=== PATIENT | female | born 1965 | race Caucasian/White ===

== ENCOUNTER 2022-10-04 07:37 | Observation (INO) | payer BC, SELFPAY ==
[2022-10-04] VITALS (10 sets, daily range): BP systolic 90–128; BP diastolic 47–76; PULSE 53–69; RESP 16–20; TEMP 36.1–36.7; O2SAT 92–97; BMI 32.0
--- NOTE | 2022-10-04 | ECG_ITS ---
Test Reason : Dizziness Blood Pressure : / mmHG Vent. Rate : 063 BPM Atrial Rate : 063 BPM P-R Int : 172 ms QRS Dur : 090 ms QT Int : 432 ms P-R-T Axes : 043 025 023 degrees QTc Int : 442 ms Normal sinus rhythm Normal ECG No previous ECGs available Referred By: Generic ED Physician Electronically Signed By:Raffy Aocsta
--- NOTE | ~2022-10-04 | CT_ITS ---
EXAMINATION: CT HEAD WITHOUT CONTRAST CLINICAL INFORMATION: Persistent dizziness, syncope COMPARISON: None TECHNIQUE: Contiguous axial imaging was performed from the skull base to vertex without intravenous administration of contrast. Additional 2-D coronal and sagittal reformatted images are generated on the CT workstation and uploaded to PACS. This CT examination was performed using dose optimization techniques as appropriate, variously including the following: *Automated exposure control *Adjustment of mA and/or kV according to patient size (this includes techniques or standardized protocols for targeted exams where dose is matched to indication/reason for exam; i.e. extremities or head) *Use of iterative reconstruction technique DLP: 680 mGy-cm FINDINGS: There is no intracranial hemorrhage, hematoma, or extra-axial fluid collection. The ventricles are normal in size. There is no hydrocephalus, edema, or mass effect. The davis-white matter differentiation appears well preserved . There is no visible acute territorial infarct or mass lesion. The calvarium appears intact. There is no pneumocephalus or orbital emphysema. The visualized sinuses and middle ears and mastoid air cells show no significant mucosal thickening. There are no air-fluid levels. CT/CT head/brain wo IV con IMPRESSION: No acute intracranial abnormality.
--- NOTE | 2022-10-04 08:39 | ED_ITS ---
HPI - Syncope General Chief Complaint: Syncope Stated Complaint: Sinkable episode per EMS Time Seen by Provider: 10/04/22 08:07 Source: patient Mode of arrival: EMS Limitations: no limitations History of Present Illness HPI narrative: Patient is a 57-year-old female who presents to the emergency department via EMS from work today after a syncopal episode. Patient states that she stayed the night at work last night, due to impending inclement weather. She does endorse that she did not sleep well, and had not yet eaten this morning. Upon awaiting to clock into work she was standing next to a co-worker when she began to feel dizzy. It is described as an unsteady feeling on her feet. Her co-worker got her a chair to sit down in. Patient syncopized for approximately 1-2 minutes. Upon awakening she reports that she continued to feel dizzy, nauseous, and had a small episode of vomiting. She reports a history of a similar event occurring approximately 6 years ago, was evaluated at [facility], reports that workup was unremarkable, and at that time it was thought to be related to a viral infection. She reports compliance with her medications, although she does endorse a recent decrease in her lithium dosage approximately 1 month ago due to hypercalcemia, for which she is now being evaluated by an administrative tech due to hyperparathyroidism. Related Data Home Medications Medication Instructions Recorded Confirmed atorvastatin 10 mg tablet 1 tab PO DAILY 10/04/22 10/04/22 cholecalciferol (vitamin D3) 50 50 mcg PO DAILY 10/04/22 10/04/22 mcg (2,000 unit) tablet lamotrigine 100 mg tablet 2 tab PO QAM 10/04/22 10/04/22 levothyroxine 125 mcg tablet 1 tab PO DAILY@0600 10/04/22 10/04/22 lithium carbonate 450 mg 1 tab PO DAILY 10/04/22 10/04/22 tablet,extended release multivitamin 1 tab PO DAILY 10/04/22 10/04/22 trazodone 50 mg tablet 1 - 2 tab PO BEDTIME 10/04/22 10/04/22 zinc sulfate 50 mg zinc (220 mg) 50 mg PO DAILY 10/04/22 10/04/22 tablet Allergies Allergy/AdvReac Type Severity Reaction Status Date / Time No Known Allergies Allergy Verified 10/04/22 08:25 Review of Systems Review of Systems: Constitutional : No Fever, No Chills, No Fatigue ENT/Mouth : No sore throat, No Rhinorrhea Eyes: No Eye Pain, No Swelling, No Redness Cardiovascular : No Chest Pain, No SOB, No Dyspnea on Exertion Respiratory : No Cough, No Sputum Gastrointestinal : Positive Nausea, positive Vomiting, No Diarrhea, No abdominal Pain Genitourinary : No Dysuria, No Urinary Frequency, No Hematuria, Musculoskeletal : No joint pain, No Myalgias, No Joint Swelling Skin : No Skin Lesions, No rash Neuro : Positive dizziness. No Weakness, No Numbness, No Headache Psych : No Anxiety/Panic, No Depression Heme/Lymph: No Bruising, No Bleeding, No Lymphadenopathy Endocrine : No Polyuria, No Polydipsia Yes all other systems are reviewed and are negative [facility] Past Medical History Attestation statement: The following information was validated with the patient. Source: old records reviewed Medical History (Updated 10/04/22 @ 18:05 by Precious Orellana RN) Breast cancer Patent ductus arteriosus Social History Social History Smoked in Last 30 Days: No Use of substances other than those prescribed or required for medical reasons: No Any prior treatment program specific to substance use: No Advance Directives: No Advance Directives Information Provided: Yes Patient : No Physical Exam Vital Signs: Vital Signs: Last Vital Signs Temp 98.0 F 10/04/22 16:00 Pulse 68 10/04/22 16:00 Resp 16 10/04/22 16:00 BP 119/66 10/04/22 16:00 Pulse Ox 96 10/04/22 16:00 O2 Del Method 10/04/22 16:00 BMI result Body Mass Index 32.0 Appearance: Alert.?Oriented to person, place and time. No acute distress.?Normal affect. Head: Normocephalic, atraumatic. No head, sinus or TMJ tenderness.? Eyes: Sclera white, conjunctiva pink. PERRL, 3 mm bilaterally. Visual frias full to confrontation, EOMi.?No Nystagmus. Ears: Bilateral ear canals clear, TM visible with good cone of light.? Nose: Nasal mucosa pink and moist with midline septum, nares patent bilaterally.? Mouth/ Throat: Oral mucosa pink and moist without lesions. Pharynx normal Neck: Normal inspection.? Neck supple.?? CVS: Heart sounds normal. Normal heart rate and rhythm.? Pulses normal.?? Respiratory: No respiratory distress.? Lung sounds clear to auscultation bilaterally?? Abdomen: Soft and non-tender. Normoactive bowel sounds. Skin: Skin warm and dry.? Normal skin color.? Extremities: No lower extremity edema. Neuro: No focal neurological deficit observed, CN II-XII intact, normal sensory observed, normal coordination observed. Level of consciousness: Appropriate for age. Motor strength: right upper extremity 5 /5, left upper extremity 5 /5, right lower extremity 5 /5, left lower extremity 5 /5.?Speech: Normal, Gait: N ormal, Atspap-ac-xaaf test: Normal, Vdsg-wk-lrhg test: Normal. Ambulates with normal steady gait. Course Reevaluation(s) Reevaluation #1: Orthostatic vital signs are negative. CBC overall unremarkable no leukocytosis, anemia. CMP is overall unremarkable, mildly elevated BUN, suspect a mild dehyd ration, random glucose is 142, etiology likely not secondary to hypoglycemia. Troponin <3.5, EKG revealing normal sinus rhythm with ventricular rate of 63, normal MT interval, QTC 442, no ST elevation, ST depression, or T-wave inversion, do not suspect ACS as an etiology for symptoms at this time. COVID- 19 and influenza testing are negative. Time: 11:42 Reevaluation #2: CT of the head without acute intracranial pathology. At this time, cause for syncopal episode is unknown, likely require cardiology consult, continued monitoring on telemetry for arrhythmia. Spoke with hospitalist service Dr. Valentin, who accepts patient for admission to medicine. Patient updated on plan of care and is agreeable. Time: 14:00 Medications Administered Generic Name Dose Route Start Last Admin Trade Name Freq PRN Reason Stop Dose Admin Acetaminophen 650 mg 10/04/22 15:00 10/04/22 15:17 Acetaminophen 325 Mg Tablet PO 650 mg Q6H PRN Administration Pain, Mild (Pain Scale 1-3) Enoxaparin Sodium 40 mg 10/04/22 15:00 10/04/22 15:15 Enoxaparin Sodium 40 Mg/0.4 Ml Syringe SUBCUT 40 mg Q24H YOSSI Administration Sodium Chloride 3 ml 10/04/22 16:00 10/04/22 15:15 0.9 % Sodium Chloride Flush 3 Ml Syringe IVFLUSH 3 ml QSHIFT YOSSI Administration Discontinued Medications Generic Name Dose Route Start Last Admin Trade Name Laurence PRN Reason Stop Dose Admin Sodium Chloride 1,000 mls @ 999 mls/hr 10/04/22 09:00 10/04/22 10:03 Ns IV 10/04/22 10:00 Infused .Q1H1M YOSSI Infusion Medical Decision Making Medical Decision Making [facility] Narrative: Patient is a 57-year-old female with past medical history of hyperlipidemia, hypothyroidism, hyperparathyroidism, bipolar 2 disorder-depression, breast cancer s/p radical double mastectomy in 2014, who presents to the emergency department for evaluation after a syncopal episode with persistent dizziness. At the time of my examination she is overall well-appearing. She is mildly hypotensive 90/50, without tachycardia, tachypnea, hypoxia, or fever. Neuro exam without any focal deficits, no spontaneous or gaze evoked nystagmus, no ataxia, no diplopia/dysarthria/dysphagia/dysphonia/dysmetria. Will obtain CBC to evaluate for leukocytosis/ anemia, CMP to evaluate for abnormal electrolytes /abnormal renal function/ abnormal hepatic function, EKG and troponin to evaluate for ischemia/ACS, urinalysis/urine , and lithium level, CT of the head to exclude intracranial mass, hemorrhage, infarct. PERC negative unlik fabiola pulmonary embolism Differential Diagnosis Differential Diagnoses: The differential diagnosis associated with the presentation includes (As noted above) Admission/Observation Consideration of admission/observation: Escalation of care including admission/observation considered (As noted in course) Consult Healthcare Provider Management of the patient was discussed with: Hospitalist (As noted in course) Lab Data [facility] Lab Attestation statement: I reviewed the patient's lab results. 10/04/22 08:43 10/04/22 08:43 Labs: Lab Results 10/04/22 10/04/22 10/04/22 Range/Units 08:43 08:43 08:43 WBC 8.8 (4.8-10.8) X10*3/uL RBC 4.31 (4.20-5.50) X10*6/uL Hgb 13.5 (12.0-16.0) g/dl Hct 41.8 (37.0-47.0) % MCV 97.0 (80.0-98.0) fL MCH 31.3 (27.0-33.0) pg MCHC 32.3 (31.0-35.0) g/dl RDW 11.9 (11.0-16.0) % Plt Count 200 (160-400) X10*3/uL MPV 8.9 L (9.4-12.3) fL Immature Gran % (Auto) 0.3 (0.0-0.4) % Neut % (Auto) 76.8 H (45-73) % Lymph % (Auto) 13.7 L (20-40) % [place] % (Auto) 6.8 (2-11) % Eos % (Auto) 1.6 (0-4) % Baso % (Auto) 0.8 (0-2) % Lymph # (Auto) 1.2 (1.2-4.9) X10*3/uL [place] # (Auto) 0.6 (0.1-1.2) X10*3/uL Eos # (Auto) 0.1 (0.0-0.4) X10*3/uL Baso # (Auto) 0.1 (0.0-0.2) X10*3/uL Abs Immat Gran (auto) 0.03 (0.00-0.03) X10*3/uL Absolute Neuts (auto) 6.8 (2.0-8.3) x10*3/uL Absolute Nucleated RBC 0.000 (0.0-0.012) X10*3/uL Nucleated RBC % (auto) 0.0 (0.0-0.2) /100WBC Sodium 141 (135-145) mmol/L Potassium 4.1 (3.3-5.1) mmol/L Chloride 111 H (96-108) mmol/L Carbon Dioxide 25 (22-29) mmol/L Anion Gap 9 L (12-20) BUN 17 H (9-16) mg/dL Creatinine 0.92 (0.5-1.4) mg/dL Estim Creat Clear Calc 66.6 Estimated GFR > 60 Random Glucose 142 H (60-115) mg/dL Calcium 10.2 (8.4-10.2) mg/dL Magnesium 2.2 (1.6-2.6) mg/dL Total Bilirubin 0.5 (0.0-1.0) mg/dL AST 17 (5-31) U/L ALT 18 (0-31) U/L Alkaline Phosphatase 98 (39-117) U/L Troponin I High Sens < 3.5 (<3.5-17.0) ng/L Total Protein 6.0 L (6.5-8.0) g/dL Albumin 4.2 (3.5-5.0) g/dL Urine Test (NEGATIVE) [place] (0.60-1.20) mmol/L COVID-19 (ZAINAB) (Negative) COVID-19 Clin Com Influenza Type A (KAYLIE) (Negative) Influenza Type B (KAYLIE) (Negative) Influenza A & B Note 10/04/22 10/04/22 10/04/22 Range/Units 08:43 08:43 08:43 WBC (4.8-10.8) X10*3/uL RBC (4.20-5.50) X10*6/uL Hgb (12.0-16.0) g/dl Hct (37.0-47.0) % MCV (80.0-98.0) fL MCH (27.0-33.0) pg MCHC (31.0-35.0) g/dl RDW (11.0-16.0) % Plt Count (160-400) X10*3/uL MPV (9.4-12.3) fL Immature Gran % (Auto) (0.0-0.4) % Neut % (Auto) (45-73) % Lymph % (Auto) (20-40) % [place] % (Auto) (2-11) % Eos % (Auto) (0-4) % Baso % (Auto) (0-2) % Lymph # (Auto) (1.2-4.9) X10*3/uL [place] # (Auto) (0.1-1.2) X10*3/uL Eos # (Auto) (0.0-0.4) X10*3/uL Baso # (Auto) (0.0-0.2) X10*3/uL Abs Immat Gran (auto) (0.00-0.03) X10*3/uL Absolute Neuts (auto) (2.0-8.3) x10*3/uL Absolute Nucleated RBC (0.0-0.012) X10*3/uL Nucleated RBC % (auto) (0.0-0.2) /100WBC Sodium (135-145) mmol/L Potassium (3.3-5.1) mmol/L Chloride (96-108) mmol/L Carbon Dioxide (22-29) mmol/L Anion Gap (12-20) BUN (9-16) mg/dL Creatinine (0.5-1.4) mg/dL Estim Creat Clear Calc Estimated GFR Random Glucose (60-115) mg/dL Calcium (8.4-10.2) mg/dL Magnesium (1.6-2.6) mg/dL Total Bilirubin (0.0-1.0) mg/dL AST (5-31) U/L ALT (0-31) U/L Alkaline Phosphatase (39-117) U/L Troponin I High Sens (<3.5-17.0) ng/L Total Protein (6.5-8.0) g/dL Albumin (3.5-5.0) g/dL Urine Test (NEGATIVE) [place] 0.40 L (0.60-1.20) mmol/L COVID-19 (ZAINAB) Negative (Negative) COVID-19 Clin Com See Note Influenza Type A (KAYLIE) Negative (Negative) Influenza Type B (KAYLIE) Negative (Negative) Influenza A & B Note See Note 10/04/22 Range/Units 09:36 WBC (4.8-10.8) X10*3/uL RBC (4.20-5.50) X10*6/uL Hgb (12.0-16.0) g/dl Hct (37.0-47.0) % MCV (80.0-98.0) fL MCH (27.0-33.0) pg MCHC (31.0-35.0) g/dl RDW (11.0-16.0) % Plt Count (160-400) X10*3/uL MPV (9.4-12.3) fL Immature Gran % (Auto) (0.0-0.4) % Neut % (Auto) (45-73) % Lymph % (Auto) (20-40) % [place] % (Auto) (2-11) % Eos % (Auto) (0-4) % Baso % (Auto) (0-2) % Lymph # (Auto) (1.2-4.9) X10*3/uL [place] # (Auto) (0.1-1.2) X10*3/uL Eos # (Auto) (0.0-0.4) X10*3/uL Baso # (Auto) (0.0-0.2) X10*3/uL Abs Immat Gran (auto) (0.00-0.03) X10*3/uL Absolute Neuts (auto) (2.0-8.3) x10*3/uL Absolute Nucleated RBC (0.0-0.012) X10*3/uL Nucleated RBC % (auto) (0.0-0.2) /100WBC Sodium (135-145) mmol/L Potassium (3.3-5.1) mmol/L Chloride (96-108) mmol/L Carbon Dioxide (22-29) mmol/L Anion Gap (12-20) BUN (9-16) mg/dL Creatinine (0.5-1.4) mg/dL Estim Creat Clear Calc Estimated GFR Random Glucose (60-115) mg/dL Calcium (8.4-10.2) mg/dL Magnesium (1.6-2.6) mg/dL Total Bilirubin (0.0-1.0) mg/dL AST (5-31) U/L ALT (0-31) U/L Alkaline Phosphatase (39-117) U/L Troponin I High Sens (<3.5-17.0) ng/L Total Protein (6.5-8.0) g/dL Albumin (3.5-5.0) g/dL Urine Test NEGATIVE (NEGATIVE) [place] (0.60-1.20) mmol/L COVID-19 (ZAINAB) (Negative) COVID-19 Clin Com Influenza Type A (KAYLIE) (Negative) Influenza Type B (KAYLIE) (Negative) Influenza A & B Note Independent Interpretation I performed an independent interpretation of an: EKG (As noted in course) and CT Scan Radiology Impression Discussion of test interpretation with radiology: I have reviewed the radiologist's reading. Radiologist Impression: CT/CT head/brain wo IV con IMPRESSION: No acute intracranial abnormality. Critical Care Time Critical Care Time Critical Care Time: Yes Total Critical Care Time: 35 Attestation: I personally attest to this critical care time spent taking care of the patient exclusive of all other billable procedures was approximately 35 minutes including initial evaluation of patient, ordering tests, x-ray interpretation, EKG interpretation, medical consultation, documentation, re-evaluation. Discharge Plan Discharge Clinical Impression: Syncope Patient Disposition: Admitted As Inpatient Interventions: Admission Worksheet (ED) Last Done: 10/04/22 18:04 Discharge Date/Time: 10/04/22 18:05
[2022-10-04 08:52] LABS: MANUAL DIFF FLAG NO
[2022-10-04 08:59] LABS: Basophils Absolute Auto 0.1 X10*3/uL (0.0-0.2); Basophils Percent Auto 0.8 % (0-2); Eosinophils Absolute Auto 0.1 X10*3/uL (0.0-0.4); Eosinophils Percent Auto 1.6 % (0-4); Hematocrit 41.8 % (37.0-47.0); Hemoglobin 13.5 g/dl (12.0-16.0); Imm Gran Abs Auto 0.03 X10*3/uL (0.00-0.03); Imm Gran Pct Auto 0.3 % (0.0-0.4); Lymphocytes Absolute Auto 1.2 X10*3/uL (1.2-4.9); Lymphocytes Percent Auto 13.7 % (20-40); Mean Corpuscular HGB Conc 32.3 g/dl (31.0-35.0); Mean Corpuscular Hemoglobin 31.3 pg (27.0-33.0); Mean Platelet Volume 8.9 fL (9.4-12.3); Monocytes Absolute Auto 0.6 X10*3/uL (0.1-1.2); Monocytes Percent Auto 6.8 % (2-11); Neutrophils Absolute Auto 6.8 x10*3/uL (2.0-8.3); Neutrophils Percent Auto 76.8 % (45-73); Platelet Count 200 X10*3/uL (160-400); Red Blood Count 4.31 X10*6/uL (4.20-5.50); Red Cell Distribution Width 11.9 % (11.0-16.0); White Blood Count 8.8 X10*3/uL (4.8-10.8)
[2022-10-04] MEDS: 0.9 % Sodium Chloride 1,000 ML 999 ML IV (09:02)
[2022-10-04 09:11] LABS: Alanine Aminotransferase 18 U/L (0-31); Albumin Level 4.2 g/dL (3.5-5.0); Alkaline Phosphatase 98 U/L (39-117); Anion Gap 9 (12-20); Aspartate Amino Transferase 17 U/L (5-31); Bilirubin Total 0.5 mg/dL (0.0-1.0); Blood Urea Nitrogen 17 mg/dL (9-16); Calcium 10.2 mg/dL (8.4-10.2); Carbon Dioxide 25 mmol/L (22-29); Chloride 111 mmol/L (96-108); Creatinine Clr Calc Pharmacy 66.6; Estimated Glomerular Filt Rate > 60; Glucose Random 142 mg/dL (60-115); Magnesium 2.2 mg/dL (1.6-2.6); Potassium 4.1 mmol/L (3.3-5.1); Sodium 141 mmol/L (135-145)
[2022-10-04 09:18] LABS: COVID-19 Test Negative (Negative); IDNOW Serial# 16C4AD1C; IDNOW Serial# BCCEAD1C; Influenza A Negative (Negative); Influenza B2 Negative (Negative)
[2022-10-04 09:19] LABS: Troponin-I High Sensitivity < 3.5 ng/L (<3.5-17.0)
[2022-10-04 09:48] LABS: UPreg QC Valid YES; Urine Pregnancy NEGATIVE (NEGATIVE)
--- NOTE | 2022-10-04 14:03 | P.HPHOSP_ITS ---
History of Present Illness Date of Service: 10/04/22 Attending physician on admission: [facility] Chief Complaint: Syncope Pt is a 57-year-old female with a PMH significant for?HLD, hypothyroidism, hyperparathyroidism, bipolar 2 disorder, breast cancer s/p radical double mastectomy in 2014, and hx of patent ductus arteriosus who presents to the ED after syncopal episode. 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 Says she did not sleep well and was unable to eat breakfast this morning. Pt was standing speaking with a coworker when she began to feel dizzy and sat down in a chair where she passed out for 1-2 minutes. Upon waking was still dizzy, pale, clammy, and nauseous. Vomited once or twice. EMS was immediately called and arrived shortly. Pt felt much better with supplemental O2. Currently pt feels better, less tired, but has a low-grade headache. Denies F/C. No chest pain/pressure, palpitations. No SOB. Denies abdominal pain, changes in bowel or bladder habits. No changes to vision. Pt does complain of chronic numbness and tingling in thumbs and first two digits of hands bilaterally. Pt states she is adherent to her medications, but notes a recent decrease one month ago to her lithium d/t elevated calcium levels and concern for hyperparathyroidism. Of note, pt states she had a similar syncopal episode 7-8 years ago when speaking on the phone with her partner. Workup at [facility], including tilt table test, proved negative/unremarkable. Pt also notes she underwent surgery for patent ductus arteriousus at the age of 5. In the ED patient was mildly hypertensive at 90/50. Labs were largely unremarkable, random glucose of 142, lithium subtherapeutic at 0.40. CT of head found? no acute intracranial abnormality. EKG demonstrated normal sinus rhythm. Pt was treated with1 liter of IVF. Pt will be admitted to observation on telemetry for further treatment and workup for syncope of unclear etiology. Review of Systems Review of Systems: Dizziness Syncopal episode lasting 1-2 minutes Nausea, vomiting Low-grade headache Denies chest pain/pressure, palpitations No shortness of breath Yes all other systems are reviewed and are negative [facility] Medical History (Updated 10/04/22 @ 15:15 by ISAC Chery) Breast cancer Patent ductus arteriosus Social History Smoked in Last 30 Days: No Use of substances other than those prescribed or required for medical reasons: No Any prior treatment program specific to substance use: No Advance Directives: No Advance Directives Information Provided: Yes Patient : No Meds Allergies Allergy/AdvReac Type Severity Reaction Status Date / Time No Known Allergies Allergy Verified 10/04/22 08:25 Home Medications Medication Instructions Recorded Confirmed Last Taken Type atorvastatin 10 mg tablet 1 tab PO DAILY 10/04/22 Unknown History lamotrigine 100 mg tablet 2 tab PO QAM 10/04/22 Unknown History lamotrigine 150 mg tablet 1 tab PO BEDTIME 10/04/22 Unknown History lamotrigine 25 mg tablet 3 tab PO BEDTIME 10/04/22 Unknown History levothyroxine 125 mcg tablet 1 tab PO DAILY 10/04/22 Unknown History lithium carbonate 450 mg 1 tab PO DAILY 10/04/22 Unknown History tablet,extended release trazodone 50 mg tablet 1 - 2 tab PO BEDTIME 10/04/22 Unknown History Physical Exam Vital Signs and Narrative: Vital Signs: Last Vital Signs Temp 97.5 F 10/04/22 08:00 Pulse 59 10/04/22 11:31 Resp 18 10/04/22 11:31 BP 94/47 L 10/04/22 11:31 Pulse Ox 95 10/04/22 11:31 O2 Del Method 10/04/22 11:31 BMI result Body Mass Index 32.0 Constitutional: Alert, in no acute distress. Mental Status: Oriented to person, place and time. Eyes: Pupils are equal, round, and reactive to light. Ear, Nose, and Throat: Oropharynx clear, mucous membranes moist. Ears and nose without deformities. Trachea midline. Respiratory: Clear to auscultation bilaterally. No wheezing, rales, or rhonchi. Cardiovascular: S1, S2 regular. No murmurs, rubs, or gallops. Gastrointestinal: Abdomen soft, non-tender, non-distended. Normal bowel sounds. Neurologic: Cranial nerves II-XII are grossly intact. No focal neurological deficits. Moves all extremities spontaneously. Skin: No rashes or lesions noted. Musculoskeletal: No cyanosis or clubbing. Extremities: No edema. Psychiatric: Normal mood and affect. Results Labs 10/04/22 08:43 10/04/22 08:43 Labs: Laboratory Results - last 24 hr 10/04/22 10/04/22 10/04/22 08:43 08:43 08:43 MCV 97.0 MCH 31.3 MCHC 32.3 RDW 11.9 Plt Count 200 MPV 8.9 L Immature Gran % (Auto) 0.3 Neut % (Auto) 76.8 H Lymph % (Auto) 13.7 L [place] % (Auto) 6.8 Eos % (Auto) 1.6 Baso % (Auto) 0.8 Lymph # (Auto) 1.2 [place] # (Auto) 0.6 Eos # (Auto) 0.1 Baso # (Auto) 0.1 Abs Immat Gran (auto) 0.03 Absolute Neuts (auto) 6.8 Absolute Nucleated RBC 0.000 Nucleated RBC % (auto) 0.0 Anion Gap 9 L Estim Creat Clear Calc 66.6 Estimated GFR > 60 Random Glucose 142 H Calcium 10.2 Magnesium 2.2 Total Bilirubin 0.5 AST 17 ALT 18 Alkaline Phosphatase 98 Troponin I High Sens < 3.5 Total Protein 6.0 L Albumin 4.2 Urine Test [place] COVID-19 (ZAINAB) COVID-19 Clin Com Influenza Type A (KAYLIE) Influenza Type B (KAYLIE) Influenza A & B Note 10/04/22 10/04/22 10/04/22 08:43 08:43 08:43 MCV MCH MCHC RDW Plt Count MPV Immature Gran % (Auto) Neut % (Auto) Lymph % (Auto) [place] % (Auto) Eos % (Auto) Baso % (Auto) Lymph # (Auto) [place] # (Auto) Eos # (Auto) Baso # (Auto) Abs Immat Gran (auto) Absolute Neuts (auto) Absolute Nucleated RBC Nucleated RBC % (auto) Anion Gap Estim Creat Clear Calc Estimated GFR Random Glucose Calcium Magnesium Total Bilirubin AST ALT Alkaline Phosphatase Troponin I High Sens Total Protein Albumin Urine Test [place] 0.40 L COVID-19 (ZAINAB) Negative COVID-19 Clin Com See Note Influenza Type A (KAYLIE) Negative Influenza Type B (KAYLIE) Negative Influenza A & B Note See Note 10/04/22 09:36 MCV MCH MCHC RDW Plt Count MPV Immature Gran % (Auto) Neut % (Auto) Lymph % (Auto) [place] % (Auto) Eos % (Auto) Baso % (Auto) Lymph # (Auto) [place] # (Auto) Eos # (Auto) Baso # (Auto) Abs Immat Gran (auto) Absolute Neuts (auto) Absolute Nucleated RBC Nucleated RBC % (auto) Anion Gap Estim Creat Clear Calc Estimated GFR Random Glucose Calcium Magnesium Total Bilirubin AST ALT Alkaline Phosphatase Troponin I High Sens Total Protein Albumin Urine Test NEGATIVE [place] COVID-19 (ZAINAB) COVID-19 Clin Com Influenza Type A (KAYLIE) Influenza Type B (KAYLIE) Influenza A & B Note Imaging Radiologist's Impressions: Impressions Head CT 10/04/22 10:21 IMPRESSION: No acute intracranial abnormality. Assessment and Plan (1) Syncope: Status: Acute Plan Pt is a 57-year-old female with a PMH significant for?HLD, hypothyroidism, hyperparathyroidism, bipolar 2 disorder, breast cancer s/p radical double mastectomy in 2014, and hx of patent ductus arteriosus who presents to the ED after syncopal episode. Pt will be admitted to observation on telemetry for further treatment and workup for syncope of unclear etiology Syncopal episode Unclear etiology: Orthostatics negative, patient not hypoglycemic, EKG showed normal sinus rhythm, CT of head negative for intracranial abnormalities Patient states she had a similar episode 7-8 years ago with unremarkable workup at [facility] at the time IVF Cardiology consult Monitor on telemetry Bipolar 2 disorder with depression Patient's lithium level subtherapeutic at 0.40 Patient had a recent decrease in her lithium dosage approximately 1 month ago d/t hypercalcemia Continue lithium, lamotrigine Follow-up with PCP outpatient Hyperparathyroidism Patient's calcium level high normal at 10.2 Check parathyroid hormone levels Follow-up with PCP outpatient Carpal tunnel syndrome Patient complains of bilateral numbness and tingling in the thumbs and 1st 2 digits of her hands, right worse than left Patient wears braces at night which helped Patient to follow-up with PCP on Friday Hypothyroidism Continue levothyroxine HLD Continue home meds Full Code Attending:?Dr. Holland DVT Prophylaxis: Lovenox Pt will be admitted to observation on telemetry for further treatment and workup for syncope of unclear etiology Time Spent With Patient Time: Total time managing care of this patient today ____ minutes. Quality Stroke Does the patient have a stroke diagnosis?: No VTE Prior VTE?: No VTE Risk Level:: Medical - moderate - high VTE Device Contraindication: Treatment Not Indicated VTE Drug Contraindication: N/A - Med Ordered
[2022-10-04] MEDS: 0.9 % Sodium Chloride Flush 3 ML SYRINGE IVFLUSH ×2 (15:15→23:52)
[2022-10-04] MEDS: Enoxaparin Sodium 40 MG/0.4 ML SYRINGE SUBCUT (15:15)
[2022-10-04] MEDS: Acetaminophen 325 MG TABLET 650 MG PO ×2 (15:17→21:18)
--- NOTE | 2022-10-04 15:57 | PHA.MEDREC ---
Pharmacy Consult ? Medication Reconciliation Pharmacy has completed the medication reconciliation.
--- NOTE | 2022-10-04 16:24 | MHC.EDTECH ---
Put patient on heart monitor.
--- NOTE | 2022-10-04 16:26 | MHC.EDTECH ---
Brought patient ice water and snacks.
[2022-10-04] MEDS: Lithium Carbonate 300 MG TABLET 450 MG PO (22:54)
[2022-10-04] MEDS: traZODone HCL 100 MG TABLET PO (22:55)
[2022-10-05 03:06] VITALS: BP 109/66; PULSE 73; RESP 20; TEMP 36.6; O2SAT 94
[2022-10-05] MEDS: Levothyroxine Sodium 125 MCG TABLET PO (06:40)
[2022-10-05 07:15] VITALS: BP 121/68; PULSE 72; RESP 16; TEMP 36.1; O2SAT 97
[2022-10-05] MEDS: 0.9 % Sodium Chloride Flush 3 ML SYRINGE IVFLUSH (07:52)
--- NOTE | 2022-10-05 09:45 | MHC.CM.PN ---
BECKI DELIVERED PT LIVES IN A [facility] WITH HER PARTNER. NO PRIOR SERVICES OR DME USES. NO HCP BUT WILLING TO COMPLETE ONE WHILE HERE. COVID VAX X4. PCP DR. MENDOZA. PARTNER WILL TRANSPORT HOME ON DC.
[2022-10-05 11:48] VITALS: BP 138/80; PULSE 80; RESP 18; TEMP 36.4; O2SAT 95
--- NOTE | 2022-10-05 12:04 | P.DS_ITS ---
DS: Providers Provider Date of Service: 10/05/22 Date of admission: 10/04/22 15:00 Primary care physician: Yara Montejo MD Consults: 10/04/22 15:00 Consult to Cardiology Routine Consulting Provider: Raffy Acosta Reason for consultation: Syncope DS: Diagnosis Discharge Diagnosis (1) Syncope: Status: Acute DS: Summary Hospital Course Hospital Course: Chief Complaint: Syncope Pt is a 57-year-old female with a PMH significant for?HLD, hypothyroidism, hyperparathyroidism, bipolar 2 disorder, breast cancer s/p radical double mastectomy in 2014, and hx of patent ductus arteriosus who presents to the ED after syncopal episode.? 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 Says she did not sleep well and was unable to eat breakfast this morning. Pt was standing speaking with a coworker when she began to feel dizzy and sat down in a chair where she passed out for 1-2 minutes. Upon waking was still dizzy, pale, clammy, and nauseous. Vomited once or twice. EMS was immediately called and arrived shortly. Pt felt much better with supplemental O2. Currently pt feels better, less tired, but has a low-grade headache. Denies F/C. No chest pain/pressure, palpitations. No SOB. Denies abdominal pain, changes in bowel or bladder habits. No changes to vision. Pt does complain of chronic numbness and tingling in thumbs and first two digits of hands bilaterally. Pt states she is adherent to her medications, but notes a recent decrease one month ago to her lithium d/t elevated calcium levels and concern for hyperparathyroidism.? Of note, pt states she had a similar syncopal episode 7-8 years ago when speaking on the phone with her partner. Workup at [facility], including tilt table test, proved negative/unremarkable. Pt also notes she underwent surgery for patent ductus arteriousus at the age of 5. In the ED patient was mildly hypertensive at 90/50. Labs were largely unremarkable, random glucose of 142, lithium subtherapeutic at 0.40. CT of head found? no acute intracranial abnormality. EKG demonstrated normal sinus rhythm. Pt was treated with1 liter of? IVF. Pt will be admitted to observation on tel emetry for further treatment and workup for syncope of unclear etiology. Hospital course: Patient was observed on cardiac telemetry without any evidence of arrhythmia. She has not had any further episode. She has history of multiple episode of such incident. And deemed to be vasovagal. She is doing well at this time and will be discharged home she will follow up with Dr. Acosta (gastroenterology professor) in the office Time Spent with Patient Time attestation: Total time managing care of this patient today ____ minutes. Discharge coordination time: Less than 30 minutes Quality: Safe Use of Opioids Does Pt have an Active Cancer Diagnosis on the Problem List?: No Quality: Stroke Does the patient have a stroke diagnosis?: No Physical Exam Vital Signs: Vital Signs: Last Vital Signs Temp 97.6 F 10/05/22 11:48 Pulse 80 10/05/22 11:48 Resp 18 10/05/22 11:48 BP 138/80 10/05/22 11:48 Pulse Ox 95 10/05/22 11:48 O2 Del Method 10/05/22 11:48 BMI result Body Mass Index 32.0 Discharge Plan Discharge Anticipated Discharge Date/Time: 10/05/22 11:52 Patient Disposition: Home, Self-Care Discharge Diagnosis: syncope Referrals: Yara Montejo MD [Primary Care Provider] - 1 Week Discharge Medications: Continued trazodone 50 mg tablet 1 - 2 tab PO BEDTIME atorvastatin 10 mg tablet 1 tab PO DAILY lithium carbonate 450 mg tablet extended release 1 tab PO DAILY levothyroxine 125 mcg tablet 1 tab PO DAILY@0600 lamotrigine 100 mg tablet 2 tab PO QAM multivitamin Tablet 1 tab PO DAILY zinc sulfate 50 mg zinc (220 mg) Tablet 50 mg PO DAILY cholecalciferol (vitamin D3) 50 mcg (2,000 unit) Tablet 50 mcg PO DAILY Discharge Orders: Discharge Order (Routine); Ordered 10/05/22 Ordered By: David Holland Diet: Advance to usual diet Activity on Discharge: As tolerated Stand Alone Forms: Patient Portal Discharge page Care Plan Goals: full recovery Health Concerns: syncope, likely from vasovagal episode and no specific treatment at this time. Plan of Treatment: Drink plenty of fluid and follow up with Dr. Acosta in the office Assessment: as above
--- NOTE | 2022-10-05 12:47 | MHC.CM.PN ---
DP: PT HAS BEEN MEDICALLY CLEARED FOR DC HOME, NO SERVICES. RN AWARE. PARTNER TO TRANSPORT
--- NOTE | 2022-10-05 12:59 | P.CONCA_ITS ---
History of Present Illness History of Present Illness Date of Service: 10/05/22 Requesting physician: David Holland Chief complaint: Syncope Narrative: [age] year female presenting with syncope. She has background history of hyperlipidemia, bipolar disorder, hypothyroidism and hyperparathyroidism. She has been on lithium for bipolar disorder. She has history of congenital heart disease with patent ductus arteriosus which was closed surgically at 5 years of age. Over the years she had multiple episodes of syncope. She is now presenting because she went to work and was standing in lobby when she started feeling dizzy. She felt as if she is going to pass out and after that passed out for 1- 2 minutes. A co-worker was with her who did not notice any seizure-like activity. When she came to [facility] she was aware of her surroundings but was nauseous and threw up few times. She also had urinary incontinence at that time but did not have urinary incontinence at the time of syncope. No chest discomfort shortness of breath. She is saying she had previous similar episodes. She is saying she felt it was a vagal event , which means she was told previously that she had vasovagal syncope. [facility] Past Medical History Medical History (Updated 10/04/22 @ 18:05 by Precious Orellana RN) Breast cancer Patent ductus arteriosus Social History Social History Household Members: Significant Other Housing: House Do you presently have visiting nurse or other home services: No Patient Tobacco Use Status: Never used Tobacco service: No Current occupational status: employed Meds Allergies Allergy/AdvReac Type Severity Reaction Status Date / Time No Known Allergies Allergy Verified 10/04/22 08:25 Active Medications: Current Medications Acetaminophen (Acetaminophen 325 Mg Tablet) 650 mg PO Q6H PRN PRN Reason: Pain, Mild (Pain Scale 1-3) Last Admin: 10/04/22 21:18 Dose: 650 mg Docusate Sodium (Docusate Sodium 100 Mg Capsule) 100 mg PO DAILY PRN PRN Reason: Constipation Enoxaparin Sodium (Enoxaparin Sodium 40 Mg/0.4 Ml Syringe) 40 mg SUBCUT Q24H [facility] Last Admin: 10/04/22 15:15 Dose: 40 mg Levothyroxine Sodium (Levothyroxine Sodium 125 Mcg Tablet) 125 mcg PO DAILY@0600 [facility] Last Admin: 10/05/22 06:40 Dose: 125 mcg Friendship Carbonate (Friendship Carbonate 300 Mg Tablet) 450 mg PO BEDTIME [facility] Last Admin: 10/04/22 22:54 Dose: 450 mg Ondansetron HCl (Ondansetron Hcl 4 Mg/2 Ml Vial) 4 mg IVPUSH Q8H PRN PRN Reason: Nausea and Vomiting Pharmacy Consult (Consult Rx Perform Med Rec) 1 each MISCELLANE ONCE PRN PRN Reason: Consult order Sodium Chloride (0.9 % Sodium Chloride Flush 3 Ml Syringe) 3 ml IVFLUSH QSHIFT [facility] Last Admin: 10/05/22 07:52 Dose: 3 ml Trazodone HCl (Trazodone Hcl 100 Mg Tablet) 100 mg PO BEDTIME [facility] Last Admin: 10/04/22 22:55 Dose: 100 mg Home Medications Medication Instructions Recorded Confirmed Last Taken Type atorvastatin 10 mg tablet 1 tab PO DAILY 10/04/22 10/04/22 Unknown History cholecalciferol (vitamin D3) 50 50 mcg PO DAILY 10/04/22 10/04/22 Unknown History mcg (2,000 unit) tablet lamotrigine 100 mg tablet 2 tab PO QAM 10/04/22 10/04/22 Unknown History levothyroxine 125 mcg tablet 1 tab PO DAILY@0600 10/04/22 10/04/22 Unknown History lithium carbonate 450 mg 1 tab PO DAILY 10/04/22 10/04/22 Unknown History tablet,extended release multivitamin 1 tab PO DAILY 10/04/22 10/04/22 Unknown History trazodone 50 mg tablet 1 - 2 tab PO BEDTIME 10/04/22 10/04/22 Unknown History zinc sulfate 50 mg zinc (220 mg) 50 mg PO DAILY 10/04/22 10/04/22 Unknown History tablet Physical Exam Vital Signs: Vital Signs: Last Vital Signs Temp 97.6 F 10/05/22 11:48 Pulse 80 10/05/22 11:48 Resp 18 10/05/22 11:48 BP 138/80 10/05/22 11:48 Pulse Ox 95 10/05/22 11:48 O2 Del Method 10/05/22 11:48 BMI result Body Mass Index 32.0 GENERAL APPEARANCE: in no acute distress, pleasant. NECK: no carotid bruit, no jugular venous distention. SKIN: no suspicious lesions, warm and dry. HEART: no murmurs, regular rate and rhythm. LUNGS: clear to auscultation bilaterally. ABDOMEN: soft, nontender. EXTREMITIES: no edema. PERIPHERAL PULSES: equal. NEUROLOGIC: No gross deficits, AAO X 3 Objective Labs and Meds 10/04/22 08:43 10/04/22 08:43 Assessment and Plan (1) Syncope: Status: Acute Plan Pleasant 57-year-old female presenting for syncope. Clinical story is suggestive of vasovagal syncope. I have advised her to keep herself well hydrated and use some Gatorade couple of times a week. I have also advised her to avoid warm and hot environments and if she has multiple layers on her she should removed and quickly because he can trigger vasovagal syncope. On telemetry she does not have any arrhythmia. I have advised her to ambulate the hallways and see if she feels fine and if she is stable she can return home. We will arrange an echocardiogram as outpatient and do a tilt-table test. Thank you for allowing me to participate in the care of your patient. Please feel free to contact me if you have any questions. Time Spent With Patient Time: Total time managing care of this patient today ____ minutes. Procedures Date of Service Date of Service: 10/05/22
[2022-10-07 15:44] LABS: Calcium (PTHI) 10.4 mg/dL (8.6-10.4); PTHI 65 pg/mL (16-77)
== END 2022-10-05 16:44 | disposition home or self-care (01) ==
LOC: HO.ED 09:03 → HO.EDOVER 15:13 → HO.IMC 16:17
PROVIDERS: Nurse Practitioner Family; Admitting Provider Student in an Organized Health Care Education/Training Program; Emergency Provider Emergency Medicine; PCP Internal Medicine; Visit Provider Internal Medicine
DX: R55 Syncope and collapse (principal); Z20.822 Contact with and (suspected) exposure to COVID-19; E78.5 Hyperlipidemia, unspecified; E21.3 Hyperparathyroidism, unspecified; E03.9 Hypothyroidism, unspecified; F31.81 Bipolar II disorder; Z85.3 Personal history of malignant neoplasm of breast; Z90.13 Acquired absence of bilateral breasts and nipples; Z79.899 Other long term (current) drug therapy; Z79.02 Long term (current) use of antithrombotics/antiplatelets
CPT/HCPCS: 36415; 70450; 80053; 80178; 81025; 83735; 83970; 84484; 85025; 87502; 87635; 93005; 96360; 96372; 99222; 99285; J1650